=== PATIENT | male | born 1990 | race Caucasian/White ===

== ENCOUNTER 2024-03-20 22:44 | Emergency (ER) | payer OTHER ==
[~2024-03-20] VITALS: Ht 182.9 cm; Wt 113.4 kg
[~2024-03-20 22:44] MED LIST: Cipro500 MG PO; Flomax0.4 MG PO; HYDACE5 PO; HYDR1TAB94 PO; KETO10 PO; NAPR500 PO; Percocet 5-3251 EACH PO; TRAM50 PO; Vistaril25 MG PO
[2024-03-20] MEDS ORDERED: Ketorolac Tromethamine 30mg Vial IV ONE ×2 (23:25→23:30)
[2024-03-20 23:30] LABS: BASOPHILS ABSOLUTE AUTO 0.07 K/mm3 (0.00-0.23); BASOPHILS PERCENT AUTO 1 % (0-2); EOSINOPHILS ABSOLUTE AUTO 0.28 K/mm3 (0.00-0.68); EOSINOPHILS PERCENT AUTO 3 % (0-6); Hematocrit 47.4 % (37.0-53.0); Hemoglobin 16.8 g/dL (13.5-17.5); IMMATURE GRAN ABSOLUTE AUTO 0.02 K/mm3 (0.00-0.10); IMMATURE GRAN PERCENT AUTO 0 % (0-1); LYMPHOCYTES ABSOLUTE AUTO 3.31 K/mm3 (0.84-5.20); LYMPHOCYTES PERCENT AUTO 40 % (21-46); MONOCYTES ABSOLUTE AUTO 0.61 K/mm3 (0.16-1.47); MONOCYTES PERCENT AUTO 7 % (4-13); Mean Corpuscular HGB 30.5 pg (26.0-34.0); Mean Corpuscular HGB Conc 35.4 g/dL (31.5-36.5); Mean Corpuscular Volume 86 fL (80-100); Mean Platelet Volume 8.9 fL (9.1-12.4); NEUTROPHILS ABSOLUTE AUTO 3.93 K/mm3 (1.96-9.15); NEUTROPHILS PERCENT AUTO 48 % (41-73); Platelet Count 446 K/mm3 (150-400); RDW Coefficient Variation 12.7 % (11.7-14.2); RDW Standard Deviation 39.9 fL (35.1-46.3); Red Blood Cell Count 5.51 M/mm3 (4.30-5.90); White Blood Cell Count 8.22 K/mm3 (4.00-11.30)
[2024-03-20] MEDS ORDERED: NS 1,000 ML IV SCH (23:30)
[2024-03-20] MEDS ORDERED: Ondansetron HCl 2 MG / ML 2ML Vial IV ONE (23:30)
[2024-03-20 23:50] LABS: Albumin, Blood 4.2 g/dL (3.4-5.0); Albumin/Globulin Ratio 1.1 (0.8-1.8); Bilirubin, Total 0.6 mg/dL (0.1-1.0); Bun/Creatinine Ratio 13.7 (12.0-20.0); Calcium, Blood 9.7 mg/dL (8.5-10.1); Creatinine, Blood 1.02 mg/dL (0.60-1.20); Globulin, Blood 3.9 g/dL (2.2-4.0); Potassium, Blood 3.8 mmol/L (3.5-5.5); Total Protein, Blood 8.1 g/dL (6.4-8.2)
[2024-03-21] MEDS ORDERED: FentaNYL Citrate 50 MCG/ML 2 ML Injection IV ONE (00:40)
[2024-03-21 01:06] LABS: Source, Urine Clean Catch
[2024-03-21 01:08] LABS: Blood, Urine 5+ (Neg); Glucose Qualitative, Urine Neg (Neg); Ketones, Urine 1+ (Neg); Leukocyte Esterase, Urine 1+ (Neg); Nitrite, Urine Neg (Neg); Protein, Urine 2+ (Neg); Specific Gravity, Urine 1.025 (1.003-1.022); Urobilinogen, Urine 3+ (Normal)
[2024-03-21 01:09] LABS: Appearance, Urine Hazy (Clear); Bilirubin, Urine 1+ (Neg); Color, Urine Yellow (P-Yellow)
[2024-03-21 01:16] LABS: Amorphous Light (0-Heavy); Bacteria Few /hpf; Calcium Oxalate Crystals Many /hpf; Mucus Mod (0-Heavy); Squamous Epithelial Cells Few /hpf (Few)
[2024-03-21] MEDS ORDERED: RX Prepack 2 Tabs Ondansetron ODT 4MG UD ONE (02:00)
[2024-03-21] MEDS ORDERED: Tamsulosin HCl 0.4 MG Cap PO ONE (02:00)
[2024-03-21] MEDS ORDERED: RX Prepack 6 Tabs Oxycodone 5mg UD ONE (02:00)
[2024-03-21] MEDS ORDERED: HYDROmorphone HCl/Pf 1MG SYR IV ONE (02:00)
[2024-03-21] MEDS ORDERED: TAMS.4ER PO (02:03)
[2024-03-21] MEDS ORDERED: ONDA4ODT MM (02:03)
[2024-03-21] MEDS ORDERED: OXAYDO5 M1 PO (02:03)
[2024-03-21 02:30] VITALS: BP 135/98
== END 2024-03-21 02:33 | disposition home or self-care (01) ==
LOC: ER 22:44
PROVIDERS: Student in an Organized Health Care Education/Training Program
DX: N13.2 Hydronephrosis with renal and ureteral calculous obstruction (principal); R31.9 Hematuria, unspecified; F17.200 Nicotine dependence, unspecified, uncomplicated
CPT/HCPCS: 74176; 80053; 81001; 85025; 96361; 96374; 96375; 99284-25; A9270; J1171; J1885; J2405; J3010; J7030